=== PATIENT | male | born 2000 | race Caucasian/White ===

== ENCOUNTER 2024-06-08 20:19 | Outpatient (CLI) | payer OTHER | END 2024-06-08 20:20 | disposition critical access hospital (66) | LOC: EMS 20:19 | DX: R07.89 Other chest pain (principal); R07.81 Pleurodynia; R10.812 Left upper quadrant abdominal tenderness; S81.802A Unspecified open wound, left lower leg, initial encounter; V28.49XA Other motorcycle driver injured in noncollision transport accident in traffic accident, initial encounter; Y92.414 Local residential or business street as the place of occurrence of the external cause | CPT/HCPCS: A0425; A0429 ==

== ENCOUNTER 2024-06-08 20:42 | Emergency (ER) | payer OTHER ==
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
[2024-06-08] MEDS: KETOROLAC 30 MG/ML VIAL IM STA (21:35)
[2024-06-08] MEDS: BACITRACIN ZINC OINT 1 PACKET TOP STA (21:35)
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
[2024-06-08 23:16] VITALS: BP 128/77; O2SAT 99
== END 2024-06-08 23:10 | disposition home or self-care (01) ==
LOC: ED 20:42
DX: S81.802A Unspecified open wound, left lower leg, initial encounter (principal); S61.402A Unspecified open wound of left hand, initial encounter; S61.401A Unspecified open wound of right hand, initial encounter; M54.6 Pain in thoracic spine; V89.2XXA Person injured in unspecified motor-vehicle accident, traffic, initial encounter; Y92.410 Unspecified street and highway as the place of occurrence of the external cause
CPT/HCPCS: 70450; 71046; 72100; 96372; 99284; A9270